=== PATIENT | female | born 1980 | race Hispanic/Latino ===

== ENCOUNTER 2018-12-07 10:35 | Observation (INO) | payer MEDICAID | END 2018-12-07 12:10 | disposition home or self-care (01) | LOC: LDH 10:35 | PROVIDERS: ADMIT Specialist; ATTEND Specialist | DX: O26.893 Other specified pregnancy related conditions, third trimester (principal); R19.7 Diarrhea, unspecified; Z3A.32 32 weeks gestation of pregnancy | CPT/HCPCS: 76819; G0378 ×3 ==

== ENCOUNTER 2019-01-10 07:52 | Observation (INO) | payer MEDICAID ==
[~2019-01-10] VITALS: Ht 165.1 cm; Wt 120.7 kg
[2019-01-10 08:42] LABS: APPEARANCE,URINE Clear (CLEAR); BILIRUBIN,URINE Negative (NEGATIVE); COLOR,URINE Yellow (YELLOW); GLUCOSE, URINE (UA) Negative (NEGATIVE); KETONES,URINE 15 mg/dL (NEGATIVE); LEUKOCYTE ESTERASE ,URINE Small (NEGATIVE); NITRATE,URINE Negative (NEGATIVE); OCCULT BLOOD,URINE Negative (NEGATIVE); PH,URINE 5.5 (5.0-8.0); PROTEIN,URINE Trace mg/dL (NEGATIVE)
[2019-01-10] MEDS ORDERED: PROMETHAZINE HCL 25 MG/ML 1ML AMPULE IM SCH (09:00)
[2019-01-10] MEDS ORDERED: LACTATED RINGERS 1000ML IV SCH (09:00)
[2019-01-10 09:08] LABS: BACTERIA,URINE Few /HPF (None Seen); RBC,URINE 0-1 /HPF (0-1); SQUAMOUS EPITHELIAL CELL,UR Few /HPF (0-2)
[2019-01-10] MEDS ORDERED: LACTATED RINGERS 1000ML 1,000 ML IV SCH (09:15)
[2019-01-11] MEDS ORDERED: PREN-18 PO (16:11)
== END 2019-01-10 11:40 | disposition home or self-care (01) ==
LOC: EDH 07:52 → LDH 08:12
PROVIDERS: ADMIT Specialist; ATTEND Specialist
DX: O26.893 Other specified pregnancy related conditions, third trimester (principal); R19.7 Diarrhea, unspecified; R11.0 Nausea; Z3A.37 37 weeks gestation of pregnancy
CPT/HCPCS: 81001; 96360; 96372; 99284; G0378 ×3; J2550; J7120 ×2